=== PATIENT | female | born 1950 | race Caucasian/White ===

== ENCOUNTER → 2017-09-14 | Outpatient (CLI) | payer BC ==
[~2017-09-14] MED LIST: Z.0.ULTRAM 50MG50 MG PO
--- NOTE | 2017-09-14 14:08 | Diagnostic Imaging Report ---
History: Left-sided sciatica Comparison studies: None Technique: Sagittal, coronal and axial T2 , sagittal T1 and IR, axial spin density oblique. Intravenous contrast: None Findings: Number of lumbar vertebral bodies:5 Alignment: Normal lordosis.No scoliosis. Soft tissues: No T2 hyperintense inflammatory changes. Tortuous abdominal aorta and multiple bilateral renal cysts measuring up to 2.2 cm in the left interpolar region Paraspinal muscles: No signal abnormalities. No atrophy. Lower thoracic cord:Normal in signal and morphology. The tip of the conus is at T12-L1. Cauda equina: No masses. No arachnoiditis. Vertebrae: Normal in height and signal intensity. No compression fractures, infection or neoplasm. Degenerative changes: Mild disc degeneration with loss of T2 signal and without signal intensity changes of the endplates. L1-L2: No abnormalities. L2-L3: No abnormalities. L3-L4: Mild diffuse disc bulge and mild facet hypertrophy without significant canal stenosis or foraminal narrowing. L4-L5: Diffuse disc bulge with superimposed left subarticular and foraminal disc protrusion, facet hypertrophy and ligamentum flavum thickening results in moderate canal stenosis, obliteration of the left subarticular recesses and moderate left foraminal narrowing. L5-S1: Diffuse disc bulge and mild facet hypertrophy results in mild canal stenosis and mild bilateral foraminal narrowing. Additional findings: None IMPRESSION: Moderate canal stenosis, obliteration of the left subarticular recess and moderate left foraminal narrowing at L4-L5 secondary to left subarticular and foraminal disc protrusion. Disc material impinges the descending L5 nerve root and contact the exiting L4 nerve on the left side. Signed by: DR Dashawn Marcelo M.D. on 09/14/2017 2:05 PM
== END ==
LOC: MRI 09:51
PROVIDERS: ATTEND Internal Medicine
DX: M54.32 Sciatica, left side (principal)
CPT/HCPCS: 72148

== ENCOUNTER 2017-12-06 05:22 | Observation (INO) | payer BC, MEDICARE ==
[2017-12-05 11:06] LABS: BASOPHILS # (AUTO) 0.1 (0.0-0.1); EOSINOPHILS # (AUTO) 0.1 (0.0-0.4); EOSINOPHILS % 1.8 % (0.0-6.0); HEMATOCRIT 46.5 % (34.2-44.1); HEMOGLOBIN 15.2 g/dL (12.0-16.0); LYMPHOCYTES # (AUTO) 2.2 (1.0-3.2); LYMPHOCYTES % 29.8 % (18.0-39.1); MEAN CORPUSCULAR HEMOGLOBIN 32.2 pg (28-32); MEAN CORPUSCULAR HGB CONC 32.7 g/dL (31-35); MEAN CORPUSCULAR VOLUME 98.5 fL (81-99); MONOCYTES # (AUTO) 0.7 (0.2-0.8); MONOCYTES % 9.7 % (4.4-11.3); NEUTROPHILS # (AUTO) 4.1 (2.1-6.9); NEUTROPHILS % 57.3 % (38.7-80.0); PLATELET COUNT 163 x10e3/uL (140-360); RED BLOOD COUNT 4.72 x10e6/uL (3.6-5.1); RED CELL DISTRIBUTION WIDTH 12.8 % (11.7-14.4)
[2017-12-05 11:15] LABS: INR 1.13; PROTHROMBIN TIME 13.6 seconds (11.9-14.5)
[2017-12-05 11:16] LABS: PARTIAL THROMBOPLASTIN TIME 26.8 seconds (23.8-35.5)
[2017-12-05 11:23] LABS: ANION GAP 17.1 mmol/L (8-16); CALCIUM 10.2 mg/dL (8.4-10.2); CREATININE, SERUM 1.03 mg/dL (0.57-1.11); POTASSIUM 5.1 mmol/L (3.5-5.1)
--- NOTE | 2017-12-05 11:41 | Diagnostic Imaging Report ---
PROCEDURE: Frontal and lateral views of the chest. COMPARISON: Chest radiograph 02/07/2011. INDICATIONS: PREOPERATIVE FOR LUMBAR SPINE SURGERY FINDINGS: Lines/tubes: None. Lungs: The lungs are well inflated. Mild patchy bibasilar opacities, likely atelectasis. There is no evidence of pneumonia or pulmonary edema. Pleura: There is no pleural effusion or pneumothorax. Heart and mediastinum: The cardiomediastinal silhouette is unremarkable. Atherosclerotic aortic calcifications. Bones: No acute bony abnormality. There is a healed fracture of the right proximal humerus, unchanged from prior radiograph. IMPRESSION: No acute thoracic abnormality. Dictated by: DIANNE SEALS M.D. on 12/05/2017 at 11:47 Electronically approved by: DIANNE SEALS M.D. on 12/05/2017 at 11:47
[~2017-12-06] VITALS: Ht 167.6 cm; Wt 77.1 kg
[2017-12-06] VITALS (8 sets, daily range): BP systolic 135–157; BP diastolic 61–70
[~2017-12-06 05:22] MED LIST changes: +NAPROXEN250 MG PO; +VIT B12 INJ; +WOMENS DAILY PO
[2017-12-06] MEDS ORDERED: VANCOMYCIN 1GM/NS 250 ML 250 ML ONE ×2 (05:31→05:35)
[2017-12-06] MEDS ORDERED: BUPIVACAINE 0.5%/EPI 30 ML SDV INJ ONE (07:32)
[2017-12-06] MEDS ORDERED: THROMBIN FOR SOLN 5,000 UNIT VIAL ONE (07:33)
[2017-12-06] MEDS ORDERED: BACITRACIN 50,000 UNIT VIAL ONE (07:33)
[2017-12-06] MEDS ORDERED: GELATIN SPONGE SZ 100 ONE (07:33)
[2017-12-06] MEDS ORDERED: HYDROMORPHONE 2MG/ML 2 MG/ML ML IV PRN (08:45)
[2017-12-06] MEDS ORDERED: OXYCODONE/ACETAMINOPHEN 5-325 1 EACH TABLET PO PRN (08:45)
[2017-12-06] MEDS ORDERED: VANCOMYCIN 1GM/NS 250 ML 250 ML IV SCH (08:45)
[2017-12-06] MEDS ORDERED: MAGNESIUM/ALUMINUM/SIMETHICONE 30 ML UDC PO PRN (08:45)
[2017-12-06] MEDS ORDERED: CARISOPRODOL 350 MG TAB PO PRN (08:45)
[2017-12-06] MEDS ORDERED: ZOLPIDEM TARTRATE 5 MG TAB PO PRN (08:45)
[2017-12-06] MEDS ORDERED: MORPHINE SULFATE 5 MG/ML VIAL IM PRN (08:45)
[2017-12-06] MEDS ORDERED: PROMETHAZINE HCL (IM) 25 MG/ML VIAL IM PRN (08:45)
[2017-12-06] MEDS ORDERED: ACETAMINOPHEN 325 MG TAB PO PRN (08:45)
[2017-12-06] MEDS ORDERED: FENTANYL CITRATE/PF 100MCG/2 ML INJ ONE ×2 (08:58→17:56)
--- NOTE | 2017-12-06 09:10 | Operative Report ---
DATE OF PROCEDURE: December 06, 2017 PREOPERATIVE DIAGNOSIS: Right L4-L5 lateral recess stenosis with radiculopathy, M48.062. POSTOPERATIVE DIAGNOSIS: Right L4-L5 lateral recess stenosis with radiculopathy, M48.062. PROCEDURE: Right L4-L5 laminotomy, medial facetectomy, and microsurgical lateral recess decompression, 79516. ANESTHESIA: General. INDICATIONS: Patient is a woman who presents with radicular pain in the right leg and unilateral neurogenic claudication due to right L4-L5 lateral recess stenosis. She was taken to the operating room for microsurgical lateral recess decompression. DETAILS OF PROCEDURE: After the induction of general anesthesia, the patient was placed on the operating table in the prone position over a Esau frame. Lumbar region was prepped and draped in a sterile fashion. A preoperative x-ray was obtained. A small midline incision was created. Lumbar fascia was opened to the right of the midline, and a subperiosteal dissection was carried out to expose the right side the L4-L5 laminae and the medial aspect of the facet joint. A 2nd x-ray confirmed correct localization. The operating microscope was brought in. A high-speed drill equipped with brit bur was used to drill the inferior aspect of the lamina of L4 and the superior rim of lamina of L5, and the medial aspect of the L4-5 hypertrophic facet joint. The markedly hypertrophic ligamentum flavum was then dissected off the dura and resected in piecemeal fashion with Kerrison rongeur until it was completely resected. The dura and the L5 traversing nerve root were fully exposed and decompressed. The nerve root was then retracted medially and the underlying disk was examined. The disk was intact without any evidence of major disk herniation or nerve root compression. Therefore, a diskectomy was not performed. Meticulous hemostasis was secured. The lumbar fascia was closed with 0 Vicryl sutures. Subcutaneous layer was closed with 2-0 Vicryl sutures. The skin was closed with 3-0 Monocryl sutures in a subcuticular fashion. Steri-Strips and a dressing were applied. The patient was awakened, extubated and taken to the postanesthesia care unit in stable condition. No intraoperative complications were encountered. Estimated blood loss was 10 mL. Job#: [id number] MD
[2017-12-06] MEDS: LACTATED RINGER'S 1,000 ML IV SCH ×2 (10:46→17:12)
[2017-12-06] MEDS: NAPROXEN 250 MG TAB PO SCH (11:12)
[2017-12-06] MEDS: VANCOMYCIN 1GM/NS 250 ML 250 ML IV SCH (17:12)
[2017-12-06] MEDS ORDERED: NEOSTIGMINE 5 MG/5ML SYR ONE (17:50)
[2017-12-06] MEDS ORDERED: ROCURONIUM BROMIDE 10 MG/ML 5ML VIAL ONE (17:50)
[2017-12-06] MEDS ORDERED: GLYCOPYRROLATE INJ 1MG/ 5 ML SYR ONE (17:50)
[2017-12-06] MEDS ORDERED: ONDANSETRON HCL INJ 2 MG/ML VIAL ONE (17:50)
[2017-12-06] MEDS ORDERED: DESFLURANE 240 ML BTL INH ONE (17:50)
[2017-12-06] MEDS ORDERED: DEXAMETHASONE SOD PHOS INJ 4 MG/ML VIAL ONE (17:50)
[2017-12-06] MEDS ORDERED: LIDOCAINE HCL 2% LOCAL INJ 5 ML SDV VIAL INJ ONE (17:50)
[2017-12-06] MEDS ORDERED: PROPOFOL IV EMULSION 10 MG/ML 20 ML VIAL ONE (17:50)
[2017-12-06] MEDS ORDERED: MIDAZOLAM HCL 2 MG/2 ML VIAL ONE (17:56)
[2017-12-06] MEDS: ONDANSETRON HCL INJ 2 MG/ML VIAL IV PRN (19:09)
[2017-12-07] MEDS: ONDANSETRON HCL INJ 2 MG/ML VIAL IV PRN (01:02)
[2017-12-07] MEDS: LACTATED RINGER'S 1,000 ML IV SCH (01:11)
[2017-12-07 05:00] VITALS: BP 141/63
[2017-12-07] MEDS: VANCOMYCIN 1GM/NS 250 ML 250 ML IV SCH (05:05)
[2017-12-07 07:52] VITALS: BP 150/67
[2017-12-07 08:03] VITALS: BP 150/67
[2017-12-07] MEDS: NAPROXEN 250 MG TAB PO SCH (09:30)
== END 2017-12-07 09:58 | disposition home or self-care (01) ==
LOC: OR 05:22 → PACU V 08:32 → IMCU 09:53
PROVIDERS: ADMIT Neurological Surgery; ATTEND Neurological Surgery
DX: M48.062 Spinal stenosis, lumbar region with neurogenic claudication (principal); Z85.3 Personal history of malignant neoplasm of breast; Z85.038 Personal history of other malignant neoplasm of large intestine; J45.20 Mild intermittent asthma, uncomplicated; Z86.73 Personal history of transient ischemic attack (TIA), and cerebral infarction without residual deficits; Z87.442 Personal history of urinary calculi; Z87.891 Personal history of nicotine dependence; Z88.5 Allergy status to narcotic agent; Z88.0 Allergy status to penicillin; Z91.048 Other nonmedicinal substance allergy status
CPT/HCPCS: 36415; 63047; 71046; 72020; 80048; 85025; 85610; 85730; 86850; 86900; 88304; 88311; 93005; 96361; G0378 ×2; J1100; J1170; J2001; J2250; J2270; J2405; J3370 ×2; J3490; J7120

== ENCOUNTER → 2018-02-20 | Outpatient (CLI) | payer BC ==
--- NOTE | 2018-02-22 14:00 | Diagnostic Imaging Report ---
MRI SPINE LUMBAR WO History: Spinal stenosis , lumbar surgery July 2017, residual low back pain radiating to the right knee Comparison studies:09/14/2017 and 07/03/2016 Technique: Sagittal and axial T2 , sagittal T1 and IR, axial spin density oblique. Intravenous contrast: None Findings: Interval postoperative changes seen with new midline posterior scar tissue at the L4-L5 level. Postoperative changes seen from a right L4 hemilaminectomy, and likely L4-L5 discectomy. Previously noted L4-L5 spinal stenosis is significantly improved. Number of lumbar vertebral bodies: 5. Alignment: Normal lordosis. No scoliosis. Soft tissues: Mild residual increased postoperative T2 signal within the right paraspinous muscles at the L4 level. Paraspinal muscles: Fatty infiltration of the paraspinous muscles, slightly increased within the right paraspinal muscles below the level of L4. Lower thoracic cord: Normal in signal and morphology. The tip of the conus is at T12-L1 . Cauda equina: No masses. No arachnoiditis. Vertebrae: No compression fractures, infection or neoplasm. Degenerative changes: L1-L2: No abnormalities L2-L3: Interval decreased disc height. Stable decreased T2 signal within the disc. Symmetric bulging disc slightly increased, with 2.9 mm of posterior mass effect. Spinal canal widely patent. Neural foramina are widely patent. L3-L4: Stable decreased T2 signal within disc. Stable symmetric bulging disc, primarily with mass effect anterior to the vertebral column. Stable minimal narrowing of the spinal canal from thickening of the ligamentum flavum. Bilateral neural foramen widely patent. L4-L5: Postoperative changes from a right hemilaminectomy and probable discectomy. Symmetric bulging disc with interval decreased mass effect, now measuring 2.9 mm. Ligamentum flavum thickening seen on sagittal views completely resolved. Mild residual left periarticular ligamentum thickening results in 6 mm of left posterior lateral mass effect on the spinal canal. Stable right mild to moderate foraminal narrowing. Stable left moderate to severe foraminal narrowing. Moderate bilateral facet arthropathy. Increased T2 and STIR signal adjacent to the right facet, which may be postoperative. L5-S1: Stable symmetric bulging disc with 4 mm of posterior mass effect. Spinal canal with mild narrowing. Mild bilateral foraminal narrowing. IMPRESSION: 1. Interval postoperative changes that appear to be a right L4 hemilaminectomy and possible L4-L5 discectomy with significant interval improvement in spinal stenosis. 2. Foraminal stenosis greatest at L4-L5, moderate to severe on the left and [id number] on the right. 3. Mild progression of L2-L3 degenerative disc. Signed by: Dr. Amol Pompa M.D. on 02/22/2018 1:56 PM
== END ==
LOC: MRI 14:59
PROVIDERS: ATTEND Neurological Surgery
DX: M48.062 Spinal stenosis, lumbar region with neurogenic claudication (principal)
CPT/HCPCS: 72148

== ENCOUNTER → 2018-09-25 | Outpatient (CLI) | payer BC ==
--- NOTE | 2018-09-25 15:30 | Diagnostic Imaging Report ---
Exam: Lumbar spine MRI without IV contrast History: Trauma, fall, low back pain and bilateral leg pain (greater in the right) Comparison studies: Lumbar spine MRI 02/20/2018 lumbar spine x-ray. Technique: Sagittal and axial T2 , sagittal T1 and IR, axial spin density oblique. Intravenous contrast: None Findings: Number of lumbar vertebral bodies: 5. Alignment: Normal lordosis. No scoliosis. Soft tissues: Chronic postsurgical changes in the dorsal lumbar soft tissues at L4-5. Dorsal paraspinal muscles: Persistent edema with atrophic changes in the right dorsal paraspinal musculature at S1. No signal abnormalities atrophic changes in the remaining dorsal-sacral musculature. Lower thoracic cord: Normal in signal and morphology. The tip of the conus is at T12-L1. Cauda equina: No masses. No arachnoiditis. Vertebrae: No compression fracture or infection. Incidental unchanged T1 hyperintense L3 vertebral body hemangioma. Degenerative changes: T10-T11 through T12-L1: Mildly degenerated disks with small disc bulges without significant canal or foraminal stenosis. Incidental small shallow Schmorl's nodes along the endplates. L1-L2: Loss of T2 disc signal. Disc height maintained. Patent canal and foramina. L2-L3: Mild degenerated disc with loss of T2 disc signal mild loss of disc height. Patent canal and foramina. L3-L4: Loss of T2 disc signal. Symmetric disc bulge does not result significant canal or foraminal stenosis. L4-L5: Mildly degenerated disc. Postsurgical changes of right hemilaminectomy and probable discectomy. Increased STIR signal within the left foraminal and subarticular foraminal disc are unchanged. Asymmetric left disc bulge with thickened ligamentum flavum and moderate left and mild right facet arthrosis with persistent mild canal stenosis, left subarticular stenosis with impingement on the left L5 nerve root and moderate to severe left foraminal stenosis. Mild right foraminal stenosis is unchanged. L5-S1: Loss of T2 disc signal. Symmetric disc bulge, thickened ligamentum flavum and bilateral facet arthrosis with mild canal stenosis, narrowing of the subarticular recesses with potential impingement on the bilateral S1 nerve roots and mild bilateral foraminal stenosis. Sacroiliac joints: Degenerative changes bilaterally. No joint effusion or marrow edema. Additional findings: Bilateral renal cysts which are grossly unchanged. IMPRESSION: 1. No significant changes from the prior lumbar spine MRI of 02/20/2018. 2. Right L4 hemilaminectomy with persistent mild canal stenosis, left subarticular recess stenosis with impingement on the left L5 nerve root, moderate to severe left foraminal stenosis and mild right foraminal stenosis at L4-L5. 3. Mild canal stenosis, bilateral foraminal stenosis and subarticular recess stenosis with potential impingement on the S1 nerve roots at L5-S1. Signed by: Dr. Tian Red M.D. on 09/25/2018 3:27 PM
== END ==
LOC: MRI 08:33
PROVIDERS: ATTEND Family Medicine
DX: M54.16 Radiculopathy, lumbar region (principal)
CPT/HCPCS: 72148

== ENCOUNTER → 2018-12-03 | Outpatient (CLI) | payer BC ==
--- NOTE | 2018-12-03 16:21 | Diagnostic Imaging Report ---
TECHNIQUE: Magnetic resonance imaging of the RIGHT SHOULDER was performed WITHOUT injected contrast. COMPARISON: None available. HISTORY: Pain FINDINGS: MUSCLES AND TENDONS: Rotator Cuff: Tendons: High-grade partial-thickness tear of the supraspinatus and infraspinatus tendons with retraction of the deep fibers approximately 1.5 cm. Muscles: Atrophy of the teres minor. Biceps Tendon: The long head of the biceps tendon is intact and within the intertubercular groove. Appears bifid. GLENOHUMERAL JOINT: Joint effusion. Glenoid Labrum: Degenerative labral tearing. Articular Cartilage: Partial-thickness cartilage loss AC JOINT AND ACROMION: Mild hypertrophic degenerative changes of the acromioclavicular joint. Subacromial spurring. BONE: Remote healed fracture of the proximal humerus. Avascular necrosis of the humeral head. No collapse. SOFT TISSUES: Mild subacromial subdeltoid bursal fluid. IMPRESSION: Supraspinatus and infraspinatus partial-thickness articular sided tear. Mild retraction of the deep fibers. Remote healed fracture of the proximal humerus. 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 Signed by: Dr. Chetan Fields M.D. on 12/03/2018 4:17 PM
== END ==
LOC: MRI 14:30
PROVIDERS: ATTEND Physical Medicine & Rehabilitation Pain Medicine
DX: M25.511 Pain in right shoulder (principal); M75.101 Unspecified rotator cuff tear or rupture of right shoulder, not specified as traumatic; M87.9 Osteonecrosis, unspecified

== ENCOUNTER 2019-02-04 09:18 | Observation (INO) | payer BC, MEDICARE ==
[2019-01-31 16:20] LABS: BASOPHILS # (AUTO) 0.1 (0.0-0.1); BASOPHILS % 0.7 % (0.0-1.0); EOSINOPHILS # (AUTO) 0.1 (0.0-0.4); EOSINOPHILS % 0.9 % (0.0-6.0); HEMATOCRIT 46.7 % (34.2-44.1); HEMOGLOBIN 15.4 g/dL (12.0-16.0); LYMPHOCYTES # (AUTO) 2.3 (1.0-3.2); LYMPHOCYTES % 23.6 % (18.0-39.1); MEAN CORPUSCULAR HEMOGLOBIN 32.3 pg (28-32); MEAN CORPUSCULAR VOLUME 97.9 fL (81-99); MONOCYTES # (AUTO) 0.9 (0.2-0.8); MONOCYTES % 9.3 % (4.4-11.3); NEUTROPHILS # (AUTO) 6.3 (2.1-6.9); NEUTROPHILS % 64.7 % (38.7-80.0); PLATELET COUNT 195 x10e3/uL (140-360); RED BLOOD COUNT 4.77 x10e6/uL (3.6-5.1); RED CELL DISTRIBUTION WIDTH 12.5 % (11.7-14.4)
[2019-01-31 16:42] LABS: ALANINE AMINOTRANSFERASE 43 IU/L (0-55); ALBUMIN 3.2 g/dL (3.5-5.0); ALBUMIN/GLOBULIN RATIO 0.8 (0.8-2.0); ALKALINE PHOSPHATASE 71 IU/L (40-150); ANION GAP 16.7 mmol/L (8-16); BLOOD UREA NITROGEN 12 mg/dL (7-26); BUN/CREATININE RATIO 14 (6-25); CALCIUM 8.9 mg/dL (8.4-10.2); CARBON DIOXIDE 25 mmol/L (22-29); CHLORIDE 102 mmol/L (98-107); CREATININE, SERUM 0.88 mg/dL (0.57-1.11); EST GLOMERULAR FILTRATION RATE > 60 ML/MIN (60-); GLUCOSE 100 mg/dL (74-118); POTASSIUM 3.7 mmol/L (3.5-5.1); SODIUM 140 mmol/L (136-145)
[~2019-02-04] VITALS: Ht 168.9 cm; Wt 75.3 kg
[2019-02-04] VITALS (15 sets, daily range): BP systolic 147–182; BP diastolic 62–79
[~2019-02-04 09:18] MED LIST changes: +COMBIVENT RESPIM4 GM IH; +SYMBICORT 16010.2 GM INH
--- OUTSIDE RECORDS SUMMARY | 2019-02-04 09:22 | XMS REPORT | Summary of Care ---
Author Author Pamela Chandler M.A. Unknown Address Unknown Phone Unavailable Care Team Providers Care Recruitment Specialist Name Role Phone VISHAL DUMONT M.D. Unavailable Unavailable Unavailable Unavailable Functional Status Name Dates Details Functional status health issues are not documented Status: Name Dates Details Cognitive status health issues are not documented Status: Problems Name Dates Details Limb pain (729.5, M79.609) Status: Active Acute carpal tunnel syndrome, left (354.0, G56.02) Status: Active Medications Name Dates Details MethylPREDNISolone 4 MG Oral Tablet Therapy Pack TAKE DIRECTED Quantity: 1 VISHAL DUMONT M.D. * Start : 24-Jan-2017 Active 21 Tablet Pack Meloxicam 7.5 MG Oral Tablet TAKE ONE TABLET ONCE A DAY NEEDED FOR PAIN * Quantity: 30 Refills: 3 VISHAL DUMONT M.D. * Start : 24-Jan-2017 Active Diclofenac Sodium 1 % Transdermal Gel APPLY TO UPPER EXTREMITIES, 2 GM OF GEL TO AFFECTED AREA 4 TIMES DAILY. DO NOT APPLY MORE THAN 8 GM DAILY TO ANY ONE AFFECTED JOINT. * Quantity: 3 Refills: 2 VISHAL DUMONT M.D. * Start : 24-Jan-2017 Active 100 GM Tube Allergies and Adverse Reactions Name Dates Details codeine (Allergy) Status: Active Penicillins (Allergy) Status: Active Procedures Procedure Dates Details EMG/NCS-Arm Date: 07-Mar-2017 [U] XRAY FOOT MIN 3 VWS LEFT [id number] Date: 18-Apr-2017 Immunization Name Dates Details Immunizations not documented Social History Name Dates Details Unknown if ever smoked Vital Signs Date Test Result Details No Known Vitals to report Results Date Description Value Details Results not documented Plan of Care Name Dates Details Planned Observations Planned Goals not documented Interventions Provided Labs/Procedures/Imaging* [U] XRAY FOOT MIN 3 VWS LEFT [id number]; To Be Done: 18 Apr 2017 Instructions Name Dates Details Instructions not documented Encounters Appointment; VISHAL DUMONT M.D. Encounter Diagnosis: Problem not documented On: 24-Jan-2017 14:45 Appointment; VISHAL DUMONT M.D. Encounter Diagnosis: Problem not documented On: 07-Mar-2017 13:45 Appointment; VISHAL DUMONT M.D. Encounter Diagnosis: Problem not documented On: 18-Apr-2017 10:15
[2019-02-04] MEDS ORDERED: DIPHENHYDRAMINE HCL 25 MG CAP ONE (10:58)
[2019-02-04] MEDS ORDERED: ALPRAZOLAM 0.5 MG TAB ONE (10:58)
[2019-02-04] MEDS ORDERED: SODIUM CHLORIDE 0.9% 1000ML 1,000 ML ONE ×2 (10:58→14:07)
--- NOTE | 2019-02-04 11:00 | NUR ---
1100pt in Received clam bed laborer prep Rm #[id number] [email or web address], prepped for procedure. Alert oriented and appropriate, PERRLA, respirations even and unlabored to room air. Pulses x4 extremities equal and faint. Pedal pulses PT/DP x4and marked. Cap fill brisk < 3 sec. bilateral feet semi cool and pale. Ecchymoses to lower ext. Skin warm and dry integrity appears intact in general. IV left hand 20g [id number] and presents healthy w/o s/s of infiltration or complaint. NS 0.9% started at 100ml/hr per dial flow. Abdomen soft and supple. pt offered toileting, denies need to urinate or defecate. Personal affects with patient. Family at bedside. Lino [phone] Pt and family verbalizes understanding of POC. Pre-Op Meds Benadryl and xanax given. crescencio Venegas RN bed low and locked, side rails up x2 and call light at side. -alejandra/hebert
[2019-02-04] MEDS ORDERED: MIDAZOLAM HCL 2 MG/2 ML VIAL ONE ×2 (12:59→13:59)
[2019-02-04] MEDS ORDERED: LIDOCAINE HCL 2% LOCAL 20 ML VIAL ONE (13:00)
[2019-02-04] MEDS ORDERED: HEPARIN SOD/SOD CHLORIDE 2,000 ML ONE (13:00)
[2019-02-04] MEDS ORDERED: FENTANYL CITRATE/PF 100MCG/2 ML INJ ONE (13:00)
[2019-02-04] MEDS ORDERED: IOPAMIDOL 370 MG/ML 200 ML INFUS..BTL INJ ONE (13:00)
[2019-02-04] MEDS ORDERED: IOPAMIDOL 300MG/ML 100 ML INFUS..BTL IV ONE (13:35)
[2019-02-04] MEDS ORDERED: BIVALRIUDIN 250 MG/VIAL VIAL IV ONE (14:06)
[2019-02-04] MEDS ORDERED: SODIUM CHLORIDE 0.9% 50ML 50 ML ONE (14:06)
[2019-02-04] MEDS ORDERED: EPTIFIBATIDE 10 ML ONE (14:19)
[2019-02-04] MEDS ORDERED: PRASUGREL 10 MG TAB ONE (14:31)
[2019-02-04] MEDS ORDERED: ASPIRIN 325 MG TAB ONE (14:31)
--- NOTE | 2019-02-04 15:02 | NUR ---
1502Received Cath recovery area #6 Identifierx2 Appropriate, PERRLA, respirations even and unlabored to room air. Pulses x4 extremities equal and strong. Pedal pulses PT/DP.Cap fill brisk < 3 sec. Bilater art and veinous sheaths in place ok to pull at 1800pm after angiox max drip completed and 2hrs post. Skin warm and dry integrity appears D/I IV 20g to left hand on pump angio max compleed 1600pm and iv rate set at 75cchr, presents healthy w/o s/s of infiltration or complaint. Abdomen soft and supple. pt offered toileting, denies need to urinate or defecate. No personal affects with patient. Family at bedside.Pt and family verbalizes understanding of POC. Remain hob down, on arrival pt c/o nauseated oredered Zofran 4mg ivp npw which releived nausea. Currently w/o further complaint of pain or need.ds/rn
[2019-02-04] MEDS ORDERED: ONDANSETRON HCL INJ 2MG/ML 2ML 2 MG/ML VIAL ONE (15:35)
--- NOTE | 2019-02-04 15:45 | NUR ---
1545 Zofran 4mg ivp given with relief ds/rn
--- NOTE | 2019-02-04 16:05 | NUR ---
7370 Sheath pull completed with Freddy space technologist. Report to floor staff Bettina MENDEZ NO gross issues pain pallor pressure or dysrhythmia. ds/rn
--- NOTE | 2019-02-04 17:23 | Operative Report ---
DATE OF PROCEDURE: 02/04/2019 SURGEON: Spenser Bustillos MD INDICATIONS: Coronary artery disease, angina with abnormal stress test. PROCEDURES PERFORMED: 1. Left heart catheterization, selective coronary angiography. 2. Atherectomy and stent placement to the proximal right coronary artery. 3. Deployment of temporary transvenous pacemaker. COMPLICATIONS: None. RECOMMENDATIONS: Dual antiplatelet therapy, staged intervention and evaluation of peripheral arterial disease. DESCRIPTION OF PROCEDURE: Access obtained in the right femoral artery. A 6-Slovak sheath was placed. Coronary angiography demonstrated heavily calcified left main, left anterior descending and circumflex arteries, diffuse 30% to 50% stenosis. Right coronary artery is heavily calcified type C, proximal 80% stenosis with BRONSON-3 flow. A decision was made to intervene on the right coronary artery. Access obtained in the right femoral vein. A 6-Slovak sheath was placed. Balloon floatation temporary transvenous pacemaker was advanced to the right ventricular apex. The right coronary artery was cannulated using a JR4 6-Slovak guiding catheter. The ViperWire was advanced across the lesion for support. Orbital atherectomy using CSI device was performed following which a single 3.5 x 12 mm Resolute Integrity drug-eluting stent was deployed at 14 atmospheres. Excellent end result, less than 10% residual stenosis, BRONSON-3 flow. No complications. Right groin artery and venous sheath was secured for removal under manual pressure. The patient was observed in the hospital overnight. MD TIAGO White/MODL /[id number]
[2019-02-04] MEDS ORDERED: ATROPINE SULFATE 0.1 MG/ML 10ML SYR ONE (17:38)
--- NOTE | 2019-02-04 18:00 | NUR ---
1800 Sheath pull in progress [facility] lab puller Jaleel Rn at bedside. 181 Veinous sheath pull manual pressure being applied by system technologist 1030 stasis achieved and dressing intact No gross issues pain pallor pressure or dysrhythmia ds/rn
--- NOTE | 2019-02-04 18:45 | NUR ---
1845p Hand off completed with Shanna Patrick for potential dc in am . RCA stent placed per Dr Bustillos remains in NSR .Rt Sheath pulls completed and down time till 2100pm. NO gross issues with pain pallor pressure or dysrhythmia.Scanned orders to RX PLEASE NOT PT IS ALLERGIC TO MORPHINE AND CODEINE and ivp and po pain meds was reported to bedside nurse with allergies and TYLENOL acceptable to pt will need to call MD if different pain med needed.Served light tray and back to baseline orientation Aware importance of f/o care 2wk [facility] office and has copies of clinical laboratory service teacher diagram Transported via [employer] and [employer] Report to tele rm pt remains in NSR No CP or SOB. alejandra/rn
[2019-02-04] MEDS ORDERED: ASPIRIN 325 MG TAB PO ONE (21:45)
[2019-02-04] MEDS ORDERED: IPRATROPIUM/ALBUTEROL SULFATE 4 GM INH INH PRN (21:45)
[2019-02-04] MEDS ORDERED: ATORVASTATIN 20 MG TAB PO SCH (22:00)
--- NOTE | 2019-02-05 00:42 | NUR ---
Right groin sites are dry and intact with no hematoma noted. Patient is off bedrest and is up to bathroom... has voided.
[2019-02-05 04:00] VITALS: BP 145/79
[2019-02-05 07:25] VITALS: BP 160/85
[2019-02-05] MEDS ORDERED: EFFIENT10 MG PO (07:51)
[2019-02-05] MEDS ORDERED: ATORVASTATIN CA20 MG PO (07:51)
[2019-02-05] MEDS ORDERED: ASPIRIN81 MG PO (07:51)
[2019-02-05] MEDS ORDERED: PRASUGREL 10 MG TAB PO SCH (09:00)
[2019-02-05] MEDS ORDERED: BUDESONIDE/FORMOTEROL 160/4.5MCG INHALER INH SCH (09:00)
== END 2019-02-05 08:15 | disposition home or self-care (01) ==
LOC: CATH LAB 09:18 → PACU V 14:27 → IMCU 18:34
PROVIDERS: ADMIT Internal Medicine Interventional Cardiology; ATTEND Internal Medicine Interventional Cardiology
DX: I25.118 Atherosclerotic heart disease of native coronary artery with other forms of angina pectoris (principal); Z01.812 Encounter for preprocedural laboratory examination; Z88.5 Allergy status to narcotic agent; Z88.0 Allergy status to penicillin; Z91.048 Other nonmedicinal substance allergy status; Z79.82 Long term (current) use of aspirin
CPT/HCPCS: 36415; 80053; 85025; 92933; 93454; C1724; C1769 ×2; C1874; G0378 ×2; J0583; J1327; J2001; J2250; J2405; J3010; J7030; Q9967 ×2; 33210; 99152; 99153

== ENCOUNTER → 2020-05-19 | Outpatient (CLI) | payer BC, MEDICARE ==
[~2020-05-19] MED LIST changes: +ASPIRIN81 MG PO; +ATORVASTATIN CA20 MG PO; +EFFIENT10 MG PO
== END ==
LOC: MRI 12:42
PROVIDERS: ATTEND Internal Medicine
DX: M54.16 Radiculopathy, lumbar region (principal)
CPT/HCPCS: 72148